=== PATIENT | female | born 1970 | race Caucasian/White ===

== ENCOUNTER 2016-09-14 11:46 | Inpatient (IN) | payer OTHER ==
[2016-09-14] VITALS (20 sets, daily range): BP systolic 110–162; BP diastolic 60–93; PULSE 71–107; RESP 8–20; O2SAT 93–100
[~2016-09-14] VITALS: Ht 165.1 cm; Wt 57.3 kg
[~2016-09-14 11:46] MED LIST: BACL20TA PO; Bacitracin 50,000 unit Inj IRRIGATION ONE; CeFAZolin Inj 1 GM in IV Premix 1 EACH IV ONE; DIAZ5TAB PO; DICL50TA7 PO; GABA600T2 PO; KEN25CR TP; LEVO75TA4 PO; Lactated Ringer's 1,000 ML IV ONE; NORE1TAB89 PO; OXYC1TAB24 PO; Thrombin Powder 5,000 Unit TOPICAL ONE
[2016-09-14] MEDS ORDERED: oxyCODONE-Acetamin 5-325 mg Tablet PO ONE (12:45)
[2016-09-14] MEDS ORDERED: Bacitracin 50,000 unit Inj ONE (14:20)
[2016-09-14] MEDS ORDERED: Thrombin Powder 5,000 Unit TOPICAL ONE ×3 (14:20→16:04)
[2016-09-14] MEDS ORDERED: Phenylephrine 10,000 mCg/mL Inj IVPUSH PRN (14:30)
[2016-09-14] MEDS ORDERED: MetoCLOpramide 5 mg/mL 2 mL Inj IVPUSH PRN (14:30)
[2016-09-14] MEDS ORDERED: Lactated Ringer's 1,000 ML IV SCH (14:30)
[2016-09-14] MEDS ORDERED: EPHEDrine Sulfate 50 mg/mL Inj IVPUSH PRN (14:30)
[2016-09-14] MEDS ORDERED: Lactated Ringer's 500 ML IV PRN (14:30)
[2016-09-14] MEDS ORDERED: Atropine 0.4 mg/mL Inj IVPUSH PRN (14:30)
[2016-09-14] MEDS ORDERED: Ondansetron 2 mg/mL 2 mL Inj IVPUSH PRN ×3 (14:30→18:05)
[2016-09-14] MEDS ORDERED: Labetalol 5 mg/mL 4 mL Inj IV PRN (14:30)
--- NOTE | 2016-09-14 14:30 | PCM.HPANE ---
Patient Data Surgeon Admitting Provider: Attending Provider:Kiran Medina MD Primary Care Physician:Emily Serrato PA-C Other Provider:Padmini Espinosa Anesthesia Reason for Visit Cervical Myelopathy CERVICAL MYELOPATHY Ht/WT & BMI Height (Feet): 5 Height (Inches): 5 Weight (Kilograms): 54.431 Body Mass Index 19.00 Allergies Coded Allergies: latex (Verified Allergy, Severe, Rash, 09/09/16) pregabalin (Verified Allergy, Severe, respiratory difficulty,"feels crazy ", 09/09/16) Past Anesthesia History Anesthesia History: Denies:: Abnormal Airway, Anesthesia Reactions, Difficult Intubation, Fam Anesthesia Reaction, Fam Malignant Hypertherm, Malignant Hyperthermia Diabetes History Hx Diabetes?: No MRSA MRSA: No Medications Hypertension Medication: No Home Meds Incl Beta Alondra: No Reported Medications Diazepam (Valium)5 Mg Tablet5-10 Mg PO TID PRN prn 30 Days Ref 0 09/09/16 Triamcinolone Acet (Triamcinolone Acetonide Cream)1 Applic/0.25 Gm Cr1 Applic TP DAILY #60 GM Ref 0 0.1% 09/09/16 oxyCODONE-Acetaminophen 5-325 mg 1 Each Tablet1-2 Tab PO Q4H PRN For Pain Ref 0 09/09/16 Norethindrone-Ethinyl Estrad (Ortho-Novum)1 Each Tablet1 Each PO DAILY 09/09/16 Diclofenac ER 50 Mg [id number] Mg PO DAILY 09/09/16 Gabapentin 600 Mg [id number] Mg PO Q4 HRS Ref 0 09/09/16 Levothyroxine 75 Mcg [id number] Mcg PO DAILY Ref 0 09/09/16 Baclofen 20 Mg Pidqer35 Mg PO TID Ref 0 09/09/16 Discontinued Reported Medications oxyCODONE-Acetaminophen 5-325 mg 1 Each Tablet1 Tab PO BID PRN For Pain Ref 0 09/09/16 [clonidine] No Conflict Check Tid 10/10/13 Hydrocodone-Acetaminophen 5-325 mg 1 Each Tablet1 Each PO Q 6HRS PRN For Pain Ref 0 10/09/13 Levothyroxine 50 Mcg [id number] Mcg PO DAILY 30 Days Ref 0 10/04/13 Gabapentin 800 Mg Mypgic488 Mg PO QID 30 Days Ref 0 07/25/13 Discontinued Scripts Nitrofurantoin Macrocrystal 100 Mg [id number] Mg PO QID 7 Days Ref 0 Prov:Clint Mandujano DO 02/14/14 History History of ENT Problems?: Yes HEENT History: Positive for:: Sinus Problem (S/P SEPTOPLASTY,TURBINATE RESECTION 07/2013) TMJ Denies:: Abnormal Airway Difficult Intubation Hearing Problem Denture Type: None Teeth Condition: Within Normal Limits Hx of Heart Problems?: No Cardiovascular History: Denies:: AICD Abdominal Aortic Aneurism Atrial Fibrillation Cardiac Surgery Chest Pain Congestive Heart Failure Coronary Artery Disease Edema Heart Murmur Hypertension Irregular Heartbeat Pacemaker Peripheral Vascular Rheumatic Fever Thrombophlebitis Valvular Heart Disease Hx of Respiratory Problem?: Yes Respiratory History: Positive for:: Pneumonia (HX OF) Use of C-PAP Machine (YASEMIN+ W/ cpap) Denies:: Asthma COPD Chest Surgery Cough Dyspnea Emphysema Hemoptysis Oxygen Administration Pulmonary Embolism Tuberculosis Hx Neurologic Problems?: Yes Neurological History: Positive for:: Dizziness Headaches Seizures (REMOTE HX-ON NO MEDS) Hx of GI Problems?: Yes Other GI Pertinent History: HX IBS Hx of Problems?: No Genitourinary History: Denies:: Kidney Stones Female Hx: Positive for:: Problems with Breasts? (S/P BREAST AUGMENTATION) Denies:: Currently (S/P C/S,IUD REMOVAL) Endometriosis Pelvic Inflammatory Skin History: Positive for:: History Skin Disorders? (HX RASH-RT ARM) Denies:: Pressure Ulcers Hx Musculoskeletal Problems?: Yes Musculoskeletal History: Positive for:: Musculoskeletal Trauma Denies:: Back Injury (S/P L3-4 FUSION C/OF LOWER BACK & NECK PAIN) Degenerative Joint Joint Replacement Systemic Lupus Hx of Psycho/Social Problems?: Yes Psycho Social History: Positive for:: Hx Depression Denies:: Suicide Attempt Hx Surgeries?: Yes (BACK, BREAST AUGMENTATION, .,SINUS SURG,IUD REMOVAL ) Hx Any Other Health Problems?: Yes Other History: Positive for:: Thyroid Disease (hypothyroidism) Denies:: Cancer Endocrine Disease Hospitalization History Blood Transfusions: Denies:: Blood Transfuse Reaction Blood Transfusions Hx Diabetes: No Hx Alcohol Use: NoHx Substance Use: Yes (IN RECOVERY) Smoking Status: Current Every Day Smoker Have You Smoked inLast 12 mo: YesApprox How Many Cigarettes/day: 1/2 PPD X 8YRS Stop/Bang S-Snoring: Do You Snore Loudly: Yes T-Tired: feel tired, fatigued: Yes O-Obsered: Observed not breath: Yes P-Blood Pressure: treated: No B- Body Mass Index > 35 kg/m2: No A- Age over 50: No N- Neck Large Circumference: No G- Gender Male: No YASEMIN Total Score: 3 YASEMIN Risk Assessment: High Risk, =/>3 Yes Risk Assessment Category Category 1A: Patient has history of documented sleep apnea, and HAS NOT received any narcotic, sedative or anesthesia administration during this stay. Category 1B: Patient has history of documented sleep apnea, and HAS received any narcotic , sedative or anesthesia administration during this stay Category 2: Patient has SUSPECTED Obstructive Sleep Apnea, and HAS received any narcotic , sedative or anesthesia administration during this stay. Category 3: Patient has SUSPECTED Obstructive Sleep Apnea and HAS NOT received narcotic, sedative or anesthesia administration during this stay. Category 4: Outpatient in Procedural Areas with known sleep apnea or who screen positive for High Risk via the STOP/BANG questionnaire. Exam Exam Vital Signs Vital Signs Date Time Temp Pulse Resp B/P Pulse Ox O2 Delivery O2 Flow Rate FiO2 09/14/16 12:15 36.9 71 16 110/73 96 Room Air General Appearance: Alert, Oriented X3, Cooperative, No Acute Distress HEENT/AIRWAY: MP 2, Neck Movement (limited extension secondary to pain) Lungs: Clear to Auscultation, Normal Air Movement Heart: Exam Unremarkable, Regular Rate/Rhythm, No Murmurs/Rubs/Gallops Meds/Labs/Diagnostics Admission Meds Current Medications Lactated Ringer's (Lr) 1,000 ml @ 120 mls/hr Q8H20M ONCE IV Last administered on 09/14/16t 11:57; Start 09/14/16 at 05:00; Stop 09/14/16 at 13:19 Plan Impression Patient chart reviewed, patient interviewed and anesthestic plan with risks, benefits, and alternatives discussed, and informed consent obtained. NPO per Anesth. Guidelines: Yes ASA Physical Status: ASA3 Severe Disease Anesthetic Plan: GA Bene/Risks/Altern/Consents: Yes HP Complete Prior to Induction: Yes Abdiel Enriquez MD September 14, 2016 12:17
[2016-09-14] MEDS ORDERED: Bacitracin 50,000 unit Inj IRRIGATION ONE (15:17)
[2016-09-14] MEDS ORDERED: Bupivacaine-MPF 0.5% 30 mL Inj INJ ONE (15:18)
[2016-09-14] MEDS ORDERED: Gelatin Sponge 12-7 MM TOPICAL ONE (15:18)
--- NOTE | 2016-09-14 15:42 | DRSVH ---
PROCEDURE: X-RAY CERVICAL SPINE, 1 VIEW INDICATIONS: MYELOPATHY TECHNIQUE: Single lateral view of the cervical spine acquired. COMPARISON: None. FINDINGS: Bones: Radiopaque surgical probes are present projected over the anterior disc interspaces localizing C4-C5 and C5-C6. Soft tissues: No prevertebral soft tissue swelling. IMPRESSION: Localization of the anterior disc interspaces C4-C5 and C5-C6. Dr. eMdina given results at 1539 hrs. 09/14/2016. Dictated by: Andrea MONTES Interpreted: Anthony Lo MD on 09/14/2016 at 15:38 Transcribed by: LUISITO on 09/14/2016 at 15:41 Approved by: Anthony Lo M.D. on 09/15/2016 at 10:21
[2016-09-14] MEDS ORDERED: Promethazine Inj 50 MG in 0.9% Sodium Chloride-Pha MIX 100 ML IV PRN (17:55)
--- NOTE | 2016-09-14 17:59 | PCM.ANEP1 ---
Post Anesthesia PACU Phase 1 Assessment Vital Signs VSS. see CLIENT SUPPORT ANALYST notes Vital Signs Date Time Temp Pulse Resp B/P Pulse Ox O2 Delivery O2 Flow Rate FiO2 09/14/16 12:19 CPAP/BIPAP 09/14/16 12:15 36.9 71 16 110/73 96 Room Air Anesthetic Administered: GA Level of Alertness: Sleepy, easy to arouse VU's with Equal Strength: Yes Pain: No Nausea or Vomiting: No CV Function & Hydration Stable: Yes Airway Device: Endotrachial Tube Oxygen Delivery: Simple Mask Lungs: Clear to Auscultation, Normal Air Movement PACU Phase 2 Assessment Complications: No Follow up Care: N/A Patient Instructions Provided: N/A Abdiel Enriquez MD September 14, 2016 17:59
[2016-09-14] MEDS ORDERED: Benzocaine (Hurricaine) 20% Unit-Dose Spray MUC_MEMBRM PRN (18:00)
[2016-09-14] MEDS: Lactated Ringer's 1,000 ML IV SCH (18:03)
[2016-09-14] MEDS ORDERED: Sodium Biphos-Phos 133 mL Enema RECTAL PRN (18:05)
[2016-09-14] MEDS ORDERED: Magnesium Hydroxide 10 mL Oral Concentration PO PRN (18:05)
[2016-09-14] MEDS ORDERED: Polyethylene Glycol (PEG) 17 Gm Powder PO PRN (18:05)
[2016-09-14] MEDS ORDERED: Acetaminophen IV 1,000 MG in IV Premix 1 EACH IV SCH (18:05)
[2016-09-14] MEDS ORDERED: Benzocaine-Menthol Lozenge 2/Pkg PO PRN (18:05)
[2016-09-14] MEDS ORDERED: Senna-Docusate 8.6-50 mg Tablet PO PRN (18:05)
[2016-09-14] MEDS: fentaNYL-PF 50 mCg/mL 2 mL Inj IVPUSH PRN ×2 (18:07→18:20)
[2016-09-14] MEDS ORDERED: Succinylcholine Chloride 20 mg/mL 5 mL Inj ONE (18:26)
[2016-09-14] MEDS ORDERED: Dexamethasone 4 mg/mL Inj ONE (18:26)
[2016-09-14] MEDS ORDERED: Glycopyrrolate 0.2 MG/ML 1mL Inj ONE (18:26)
[2016-09-14] MEDS ORDERED: Remifentanil 1 mg/3 mL Inj ONE (18:26)
[2016-09-14] MEDS ORDERED: HYDROmorphone 2 mg/mL Inj ONE (18:26)
[2016-09-14] MEDS ORDERED: fentaNYL-PF 50 mCg/mL 2 mL Inj ONE (18:26)
[2016-09-14] MEDS ORDERED: Propofol 10,000 mCg/mL 20 mL Inj ONE (18:26)
[2016-09-14] MEDS ORDERED: Rocuronium 10 mg/mL 5 mL Inj ONE (18:26)
[2016-09-14] MEDS ORDERED: EPHEDrine/NS 5 mg/mL 5 mL Syringe ONE (18:26)
[2016-09-14] MEDS: HYDROmorphone 1 mg/mL Inj IVPUSH PRN ×3 (18:39→19:35)
--- NOTE | 2016-09-14 19:11 | OP ---
[address] [address] OPERATIVE REPORT PATIENT: NORY CARRANZA : 1970 MR#: [id number] ADMIT: 09/14/2016 JOB ID: [id number] DATE OF SURGERY: 09/14/2016 PREOPERATIVE DIAGNOSIS(ES): Cervical spondylosis and myelopathy. POSTOPERATIVE DIAGNOSIS(ES): PROCEDURES: C4 through 6 anterior cervical diskectomy and fusion with allograft bone and C4 through 6 anterior plating. SURGEON: Kiran Medina MD APPLICATION TRAINER: Anthony Werner PA-C. ANESTHESIA: General with Dr. Abdiel Enriquez. ESTIMATED BLOOD LOSS: 50 cc. DRAINS: One JOYCE. COMPLICATIONS: None. INDICATIONS: This patient presented with symptoms and findings of cervical myelopathy. She was found to have spondylosis with cord compression at C4-5 and C5-6 and neural foraminal narrowing of a moderate degree at C5-6 bilaterally. She was primarily symptomatic from the cord compression at both levels. INDICATIONS FOR CONCESSIONS MANAGER: This procedure requires the surgeon to use two hands on instrumentation to prevent spinal cord injury. For safety reasons, an broker assistant is needed for traction and running the suction. PROCEDURE: This patient was taken to the operating room on September 14, 2016, placed supine on the operating room table with her head supported on a doughnut. She was placed under general anesthesia, prepped and draped sterile. The right side of the neck was infiltrated with 0.5% plain Marcaine. An incision was made transversely from the midline to the sternocleidomastoid at the level of C5. The incision was carried down sharply through the skin and subcutaneous tissues and hemostasis was achieved with the monopolar. The platysma was incised and blunt dissection was used to create a plane just medial to the sternocleidomastoid. The carotid was palpated, mobilized laterally. The esophagus and trachea were mobilized medially with an appendectomy retractor. The blunt dissection was carried into the prevertebral space. Then, spinal needles were placed at C4-5 and C5-6, and the location of these markers was confirmed with an intraoperative lateral C-spine x-ray, confirmed by Radiology. The markers were removed and the monopolar was used to july the C4-5 and C5-6 disk space. Deep retractors were then placed with the blades beneath the longus colli musculature and distracted open. [place] pins, the 12 mm pins, were placed into the vertebral bodies of C4 and C5 and distracted open. The microscope was brought into position. The patient had a diskectomy and fusion first performed at C4-5, then at C5-6. When the procedure was moved to the next level, then it was necessary to adjust the retractors and replace the [place] pins, and adjust the microscope. The diskectomy was performed in the same manner at both levels. First the annulus was incised with the monopolar. Then, the disc material was removed completely with curette and pituitary rongeur. The high-speed bur was used to remove the anterior and posterior osteophytes and widen the disc space. The posterior longitudinal ligament was resected with the Kerrison punch. The Kerrison punch was also used to detach the ligament, undermine the posterior osteophytes and widen the central canal. Following this decompression, foraminotomies were performed at the C5-6 level to decompress the C6 roots bilaterally. The patient did not have root compression at the C4-5 level. Then, the rasp set was used to prepare the disc space at both levels for the fusion. The C4-5 level required rasping to 9 mm, tapering to 7 mm. At the C5-6 level, an 8 mm rasp tapering to 6 was adequate to prepare the disc space. Following the use of the rasp, both the C4-5 and C5-6 spaces were irrigated with antibiotic solution. Gelfoam was used for hemostasis. Then, the Gelfoam was removed. Allograft was obtained, Vertigraft, measuring 9 mm and tapering to 7 mm at the C4-5 level, and 8 mm tapering to 6 mm at the C5-6 level. The allograft was placed at both levels. Distraction was released and the bone grafts were held firmly in position. At this point, a plate was selected to span C4 through C6. A dynamic titanium plate manufactured by [employer] (Joyce plate) was secured to the vertebral bodies of C4, C5, and C6 with the 12 mm fixed-angle self-drilling titanium screws. The screws were all locked into position. Then, the spacers were removed from the dynamic plate. The wound was then inspected. It was irrigated with antibiotic solution. Hemostasis was achieved with the bipolar electrocautery. A JOYCE drain was placed at the base of the wound, brought out through a separate stab wound, and hooked up to bulb suction. The platysma was then approximated with interrupted sutures of 0 Vicryl. The subcutaneous tissues were closed with 2-0 Vicryl. The skin was closed with 4-0 Vicryl using a subcuticular stitch. Steri-Strips were applied to the skin, which was dressed with Telfa, gauze, and tape. The patient was placed in a soft cervical collar.
[2016-09-14] MEDS: Senna-Docusate 8.6-50 mg Tablet PO SCH (20:52)
[2016-09-14] MEDS: Acetaminophen IV 1,000 MG in IV Premix 1 EACH IV SCH (20:52)
[2016-09-14] MEDS: Dexamethasone 4 mg/mL Inj IVPUSH SCH (20:53)
[2016-09-14] MEDS: CeFAZolin Inj 1 GM in IV Premix 1 EACH IV SCH (23:31)
--- NOTE | 2016-09-15 00:38 | NUR ---
Admit Pt arrived from OR at 1915. Post C4-6 discectomy. Pt transferred from [facility] with 2EA. IV patent with fluids infusing. Pt oriented to call light, bed controls. Pt shaking/trembling, provided warm blankets. Pt crying, reporting pain 10/10. Pain meds administered as well as valium. + effects rec'd. Family at bedside. Pt is FULL CODE. A/O x3, making needs known. C/o sore throat, sipping on cold water and ice chips. Cervical collar in place, dressing CDI with JOYCE drain at right anterior neck, draining serous fluid. SCD's on. Care continues
[2016-09-15] MEDS: Acetaminophen IV 1,000 MG in IV Premix 1 EACH IV SCH ×3 (01:02→13:12)
[2016-09-15 01:25] VITALS: BP 108/66; PULSE 58; RESP 18; O2SAT 97
[2016-09-15] MEDS: Dexamethasone 4 mg/mL Inj IVPUSH SCH ×3 (02:39→14:30)
[2016-09-15] MEDS: Lactated Ringer's 1,000 ML IV SCH ×2 (04:03→14:03)
[2016-09-15] MEDS: hydrOXYzine Pamoate 25 mg Capsule PO PRN ×2 (04:30→11:59)
[2016-09-15 05:01] VITALS: BP 108/51; PULSE 69; RESP 16; O2SAT 98
[2016-09-15] MEDS: CeFAZolin Inj 1 GM in IV Premix 1 EACH IV SCH (06:13)
[2016-09-15] MEDS: Senna-Docusate 8.6-50 mg Tablet PO SCH (08:09)
[2016-09-15] MEDS ORDERED: NORETHINDRONE ETHINYL ESTRAD PO SCH (08:30)
[2016-09-15 08:37] VITALS: BP 108/66; PULSE 74; RESP 18; O2SAT 97
--- NOTE | 2016-09-15 09:38 | PCM.DISURG ---
Surgical Discharge Instruction Date of Service September 15, 2016 Dates of Hospitalization Date of Hospital Admission September 14, 2016 at 18:25 Providers Admitting Physician: Kiran Medina MD Primary Care Physician: Emily Serrato PA-C Attending Physician: Kiran Medina MD Discharge Diagnosis Discharge Diagnosis Status post C4-5 and percent C5-6 anterior cervical discectomy and fusion, with allograft bone 2, & anterior cervical plating from C4-6 Post Operative diagnosis Status post C4-5 and percent C5-6 anterior cervical discectomy and fusion, with allograft bone 2, & anterior cervical plating from C4-6 Additional Instructions Discharge Instructions Anterior Cervical Discectomy and Fusion What is my recovery like? The hospital stay is usually overnight. After the surgery, you might have a sore throat. This is very common due to the retraction (moving) of the esophagus and trachea. The sore throat usually resolves in 1-2 weeks. Drinking lots of fluids will help improve the symptoms. The cervical collar should be worn at night and for comfort only during the day. On your postoperative follow- up appointments, your Doctor will perform X-rays to see how well everything is healing. What are my restrictions? You should not lift anything heavier than five pounds. Avoid excessive movements of your neck until instructed specifically by your Doctor. Can I Shower? You may shower when you go home. You must remove the outside dressing on the 7th day after surgery, or change dressing as needed if soiled or saturated ( replacing new sterile gauze & water proof dressing) otherwise leave alone. The small pieces of tape (steri-strips) directly on top of the incision may get wet. The steri-strips will fall off on their own. Can I drive? No, you should not drive until specifically given permission from your Doctor in a follow up appointment. Most Patient's can drive in 2-3 weeks if they are not taking narcotic pain medications or muscle relaxers. You may ride in a car, but should avoid trips longer than two hours in duration. When can I return work / sports? Your Doctor will discuss your return to work with you on your first postoperative follow-up appointment. Most patients may return to work within 2 weeks for sedentary jobs. More physically demanding jobs may require 3-6 months of healing before such work can be considered. When should I call the doctor? You should call your Doctor or go to the Emergency Department if you develop chest pain, oversedation, shortness of breath, a temperature greater than 101.5 F, severe uncontrolled pain or weakness, loss of bowel or bladder function, choking, swelling, lots or drainage, pus discharge or constipation. Instructions Regarding Comfort & Pain Medication Use: During the recovery period , even with the use of pain medication, you may experience pain at the site of surgery. You may also have the same type of pain you had before surgery. Please use your pain scale as a guide for taking your pain medication. When your pain is greater than 4 out of 10, or when your pain reaches your personal tolerable level of pain, take your pain medication as prescribed. Use your pain medication on an 'as needed' basis. This means if your pain level is within your tolerable level of pain you DO NOT need to take the medication. As you get better, you will notice you can increase the time interval between doses and decrease the number of tablets you are taking, gradually taking less and less pain medication. Taking pain medication when it is not necessary (for example when your pain is tolerable or acceptable) can result in dangerous side effects and over- sedation. Signs and symptoms of over-sedation include: drowsiness, excessive sleeping, slow or difficult breathing, slurred speech, impaired thinking, confusion, impaired motor coordination. If you have any of these symptoms stop taking the medication and immediately contact your doctor. IF SYMPTOMS ARE LIFE THREATENING CALL 911. To decrease pain and swelling, frequently apply an ice pack for 20 min intervals with at least one hour off. When to take Acetaminophen for pain? If you don't have liver problems, allergies and/or Tylenol is not in your current pain medication. Take Extra Strength Tylenol 500mg 2 tabs by mouth every 6 hours as needed for pain. DO NOT EXCEED 8 TABS PER DAY. Use CPAP as instructed & all times indicated. Follow Up Plan Follow Up Plan 1. Follow-up with physician banking assistant in outpatient neurosurgery clinic in 1 week for wound check. 2. Establish postoperative pain management in 2 weeks. Follow-up Provider (F9): Anthony Werner PA-C Additional Information Attending Statement All documentation reviewed & orders authorized by Dr. Kiran Medina M.D. Anthony Werner PA-C September 15, 2016 09:38
--- NOTE | 2016-09-15 09:45 | PCM.DC.SUR ---
Discharge Summary Date of Service: September 15, 2016 Date of Hospital Admission: September 14, 2016 at 18:25 Date of Operation(s): 09/14/2016 Date of Discharge: 09/15/2016 Diagnosis at Time of Discharge Status post C4-5 & C5-6 anterior cervical discectomy and fusion, with allograft bone 2, & anterior cervical plating from C4-6 Problems: Operation C4-5 & C5-6 anterior cervical discectomy and fusion, with allograft bone 2, & anterior cervical plating from C4-6 Brief History and Physical: Patient: Lisseth Louie Date of : 1970 Visit Type: Pre Op Visit Date: 09/09/2016 09:00 AM This 46 year old female presents for Preop C4-6 ACDF, Allograft x 2 and & Plating. History of Present Illness: 1. Preop C4-6 ACDF, Allograft x 2, & Plating Lisseth Louie is a 46 year old female referred by Primary Care provider ( PCP) Emily Serrato PA-C who presents today's date 09/09/2016 for a preoperative type of appointment concerning the decision for surgery involving C4-5 & C5-6 anterior cervical discectomy and fusion, with allograft bone 2, & anterior cervical plating from C4-6 secondary to a diagnosis of cervical spondylosis with myelopathy with related complaints of severe, intractable, and debilitating headache & neck spasm to the shoulders & back with radiating pain, numbness, paresthesias, dysesthesias, & weakness in the bilateral upper extremities including difficulty with coordination. The patient was last evaluated by Dr. Kiran Medina M.D. on 07/15/2016 documenting that she had low back surgery, a fusion for treatment of severe low back pain and lumbar radicular pain, approximately 3 years ago surgery was successful at relieving the lumbar radicular pain and most of the local low back pain. She still has some residual low back pain. Over the past 3 years since the back surgery she's had a progression of neck pain and symptoms of cervical myelopathy. She was seen in consultation 1 year ago and has had progression of her symptoms of myelopathy. She was offered surgery last year, but was unable to obtain insurance coverage, and lived with her symptoms. She reports that she's had constant posterior neck pain over the past 6-7years it has become much more severe over the past 3 years. The neck pain radiates into the shoulders and arms. She reports a constant diffuse ache in the shoulders arms and hands over the past 3 years. She also has constant numbness and paresthesias diffusely in the arms and hands more severe in the left arm. The symptoms in the right arm started approximately 1 1/2 years ago. Over the past 3 years she has noted a jitteriness in her hands and has been dropping things from both hands. She also reports impairment of balance over the past 3 years. She denied lumbar spasm and denied bladder spasticity. Cervical extension causes increased neck pain and increased pain radiating into the shoulders. The cervical extension also causes diffuse paresthesias and burning pains in the arms and can cause shooting pain into the arms. Cervical extension can also cause a pain down the back of the spine to the low back. The patient reports that she wakes up from sleep with diffuse pain involving the shoulders and arms described as a burning aching sensation in cramping sensation. She also has episodes of left anterior chest wall pain. An MRI scan of the cervical spine obtained last year, 05-13-15, was obtained showing spondylosis at multiple levels with cord compression most pronounced at C4-5 and C5-6. She reports a progression of symptoms, with more intense anterior chest wall pain, and would like to proceed with surgery. The patient has repeated her MRI in preparation for her indicated surgery. According to Dr. Kiran Medina M.D. the patient has cervical spondylosis with myelopathy. She is failed conservative treatment & her symptoms are intractable. He recommends cervical spinal decompression and fusion with instrumented stabilization. Dr. Medina & the patient discussed all the risks and benefits associated with procedure as well as reasonable expectations with her scar to surgical outcomes & the patient elected proceed with surgery as planned. The patient denies any complete or acute loss of control of bowel or bladder function, saddle paresthesia or anesthesia. The patient has a reported pertinent past medical, surgical, family, & social history for previous multilevel lumbar fusion, section, breast augmentation, obstructive sleep apnea (has CPAP), chronic joint pain, thyroid disorder, a distant history of seizures, history of dizziness, frequent headaches, but denies history of illegal drug use, severe depression or suicidal ideation. She is however a chronic smoker with possible chronic pain syndrome & chronic pain management (history of detox & Suboxone use); with no other then the above known positive history &/or review of all other organ systems. The patient's related complaints have been a serious detriment to their happiness and activities of daily living. Having failed conservative treatment the patient presents today for their decision for surgery appointment involving C4-5 & C5-6 anterior cervical discectomy and fusion, with allograft bone 2, & anterior cervical plating from C4-6 for treatment of cervical spondylosis with myelopathy; related to severe, intractable, and debilitating headache & neck spasm to the shoulders & back with radiating pain, numbness, paresthesias, dysesthesias, & weakness in the bilateral upper extremities including difficulty with coordination. The procedure is scheduled to be performed by Dr. Kiran Medina M.D. on 07/15/2016. Problem List: Problem Description Multiple-level cervical spondylosis with myelopathy Sleep apnea Pain radiating to left shoulder Back pain Opioid type dependence, unspecified use Anxiety State, NOS Acquired hypothyroidism Medical/Surgical/Interim History Reviewed, no change. Last detailed document date:09/09/2016. Family History: Reviewed, no changes. Last detailed document date:09/09/2016. Social History (Reviewed, updated) 09/09/2016 Tobacco use reviewed. Preferred language is Romansh. The patient does not need an educational interpreter. Marital Status/Family/Social Support Currently legally . Smoking status: Current every day smoker. Smoking Status Use Status Type Smoking Status Years Used Total Pack Years yes Cigarette Current every day smoker 5.00 3.75 Tobacco Cessation Information Date Counseled By Order Status Description Code Tobacco Cessation Information 04/05/2012 Celia Nelson Tobacco cessation counseling completed Smoking cessation education 05/17/2012 Celia Nelson Tobacco cessation counseling completed Smoking cessation education 02/20/2015 Smoking cessation education 02/20/2015 Santino Sosa MA Tobacco cessation counseling completed Tobacco cessation counseling There is passive smoke exposure. Tobacco type: Cigarette CAFFEINE The patient uses caffeine: coffee - 2 cups a day. Allergies: Ingredient Reaction Medication Name Comment PREGABALIN Trouble Breathing, "feels crazy" Lyrica LATEX rash Reviewed, no changes. Review of Systems System Neg/Pos Details Endocrine Positive Weight gain, Weight loss. Psych Positive Anxiety. MS Positive Back pain, Bone/joint symptoms, Muscle weakness, Myalgia, Neck stiffness. Respiratory Positive Apnea. Respiratory Negative Dyspnea and wheezing. Cardio Negative Chest pain, irregular heartbeat/palpitations, leg swelling and pacemaker. Constitutional Negative Chills and fever. ENMT Negative Hearing loss. Neuro Negative Dizziness, headache and seizures. Negative Dysuria, urge incontinence and urinary incontinence. Eyes Negative Double vision and vision loss. Integumentary Negative Mrsa and rash. GI Negative Abdominal pain, constipation, diarrhea, nausea and vomiting. Mandeep/Lymph Negative Blood clots. Psych Negative Depression. Vital Signs Height Time ft in cm Last Measured Height Position % 8:50 AM 5.0 5.00 165.10 03/01/2016 Weight/BSA/BMI Time lb oz kg Context % BMI kg/m2 BSA m2 8:50 AM 120.00 54.431 dressed with shoes 19.97 1.58 Blood Pressure Time BP mm/Hg Position Side Site Method Cuff Size 8:50 AM 138/68 sitting left wrist automatic adult Temperature/Pulse/Respiration Time Temp F Temp C Temp Site Pulse/min Pattern Resp/ min 8:50 AM 98.6 37.0 68 regular Pain Scale Time Pain Score Method 8:50 AM 5/10 Numeric Pain Intensity Scale Measured By Time Measured by 8:50 AM Pretty Starks MA Screening Summary:o The following were reviewed: tobacco use, alcohol use, caffeine use and date of last mammogram Physical Exam Exam Findings Details Comments WD/WN, female who is AO x 3, cooperative & appears to be in NAD w/ language & speech that is intact & fluent. There is no evidence of recent or remote memory impairment. The patient's knowledge is appropriate for age & level of education w/ a pleasant affect & euthymic mood. Ambulates w/ no difficulty. NC/AT, PERRL, EOMI, w/o facial droop, hearing grossly intact, nostrils patent, oral cavity and pharynx normal. Neck supple, w/o LAD or thyromegaly. 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 Assessment Cervical spondylosis with myelopathy (M47.12). 2. Assessment Pre-op evaluation (Z01.818). Patient Plan We including your Attending Surgeon have discussed the risks and benefits associated your scheduled procedure which you have verbally acknowledged understanding including but not limited to the possibility of an outcome that we are unable to predict or was not mentioned. 1. You are scheduled for a C4-5 & C5-6 anterior cervical discectomy and fusion , with allograft bone 2, & anterior cervical plating from C4-[address] Kiran Medina M.D. at [facility] on 09/14/2016. 2. Check in time is 12 PM. Also please ignore instructions below if told otherwise by your preadmission nurse or if you do not take the medications listed below. 3. Nothing to eat after midnight the night before surgery. You may take all of your "approved" medications with small sips of water. Remember to take your a.m. hypertension medication if it is a beta sameer and ends in "olol. Otherwise ask your doctor if you need to hold your a.m. hypertension medication. 4. No aspirin, ibuprofen, Naprosyn, or other NSAIDs starting 7 days prior to surgery. 5. Please stop Warfarin/Coumadin or other blood thinners such as Plavix, Aggrenox, or Xarelto 7 days prior to your surgical procedure and follow specific instructions from your prescribing provider. 6. Please stop Lovenox bridging in the morning one day prior to procedure. 7. Please stop Suboxone/Buprenorphine at least 4 days prior to procedure. 8. Go to the hospital today to get her preoperative testing done. Take the order form to the surgery desk on the second floor of the hospital, [facility] (main entrance next to the emergency entrance). I will notify you if there is any test results that require further workup prior to surgery. 9. Follow the instructions you were given today, use the cleansing cloths the night before as well as the morning of her surgery. 10. If you are prescribed inhalers, CPAP or BiPAP machines you use at home bring along with you to the hospital. 11. ONLY If you take medications for Diabetes: If you have an insulin pump continue lowest (typically night-time) basal rate into the a.m. If you do not have a pump check h your a.m. blood sugar and hold insulin if BS less than 100. If you are taking long-acting, intermediate acting (NPH) or 70/30 preparation : Take half on day of procedure. If you are taking ultra long-acting insulin such as glargine, Lantus either at night or in the a.m. continue as scheduled ( including day of surgery). If you take short acting regular insulin (insulin not delivered via pump) discontinue on day of procedure. 12. Please call if you have any questions before your surgery: [phone]. Today's instructions/counseling include(s) Pre-operative instructions given to the patient and or legal inbound customer service representative(s) orally and in writing. 13. Our office will contact you if there are any test results that require further workup prior to surgery. Provider Plan The patient's history and examination as well as radiological findings were reviewed with Dr. Kiran Medina M.D. and conveyed the patient in detail. The findings are consistent with cervical spondylosis with myelopathy and are most likely the cause of the patient's severe, intractable, and debilitating headache & neck spasm to the shoulders & back with radiating pain, numbness, paresthesias, dysesthesias, & weakness in the bilateral upper extremities including difficulty with coordination. The patient has failed extensive conservative treatment for this condition. The treatment options were discussed with the patient. The options include attempt to live with the condition, reattempt conservative treatment, try a pain management intervention / injection or consider a surgical intervention. We are not extremely optimistic that further conservative treatment, pain management intervention and/or injection will adequately resolve the patient's symptoms of severe, intractable, and debilitating headache & neck spasm to the shoulders & back with radiating pain, numbness, paresthesias, dysesthesias, & weakness in the bilateral upper extremities including difficulty with coordination. Therefore we recommend C4-5 & C5-6 anterior cervical discectomy and fusion, with allograft bone 2, & anterior cervical plating from C4-6. The patient was provided/offered educational materials pertaining to their diagnosis and the above discussed procedure. We discussed the risks and benefits associated with this surgery. A spine model was used to explain the nature of this type of surgery. The risk of the required anesthesia was also mentioned including but not limited to organ failure such as heart attack, pneumonia and stroke even . The risk of this type of surgery was also mentioned. Including but not limited to an unsuccessful outcome, residual symptoms, odynophagia, dysphasia or sore throat, referred or radiating posterior spinal myofascial inflammatory pain or spasm, post operative instability, instrumentation failure, sensory changes, blood loss, blood clots, wound infection, spinal cord or nerve damage, CSF or lymph leak, damage to neighboring structures such as the recurrent laryngeal nerve, perforation of the esophagus or trachea, pseudoarthrosis, adjacent level disease, Jimbo's Syndrome, vision loss, voice change, resulting in temporary or permanent dysfunction, even disability, paralysis, and . The recovery of this type of surgery was also mentioned. This includes but is not limited to reasonable expectations for the treatment of myelopathy involving the surgical decompression of the cervical spinal cord; which will stop the progression of the patient's condition but cannot guarantee improvements in any associated physical complaints. The patient verbalized understanding all the risks and benefits, knowing that it is impossible to predict or guarantee every surgical outcome; and would like to proceed with the above discussed procedure anyways. Surgery is scheduled for 09/14/2016. The standard [facility] preoperative screening tests, medicine restrictions, and logistical protocols apply. Any preoperative testing is within normal limits to undergo the above discussed procedure unless otherwise noted in the medical record. POSTOPERATIVE NOTE: The patient was given a prescription for postoperative analgesics & muscle relaxants after she verbalized understanding with regards to his discussion involving the risks, benefits, & care associated with these medications including but not limited to really seek immediate medical attention for shortness of breath or oversedation. Medications (added, continued or stopped this visit): Start Date Medication Directions Stop Date 07/27/2016 baclofen 20 mg tablet take 1 tablet by oral route 3 times every day 04/15/2016 diclofenac potassium 50 mg tablet take 1 tablet by oral route daily 08/27/2016 gabapentin 300 mg capsule take 2 capsule by oral route 3 times every day 05/26/2016 levothyroxine 75 mcg tablet take 1 tablet by oral route every day 04/15/2016 Ortho-Novum (28) 0.5 mg/0.75 mg/1 mg-35 mcg tablet Take one tablet daily 09/07/2016 oxycodone-acetaminophen 5 mg-325 mg tablet take one tablet during the day and one tablet at bedtime as needed for severe pain 09/20/2016 09/12/2016 Percocet 10 mg-325 mg tablet take 1 - 2 tablet by oral route every 4 - 6 hours as needed for pain DO NOTEXCEED 8 TABS PER DAY. 09/07/2016 triamcinolone acetonide 0.1 % topical cream apply by topical route every day a thin layer to the affected area(s) 09/12/2016 Valium 5 mg tablet take 1 - 2 Tablet by oral route every 8 hours as needed for spasm Counseling/Educational Factors: Counseling / educational factors reviewed. Counseling / educational factors reviewed. This is a visit of 60 minutes. 50 minutes were spent counseling. This document may have been created using voice recognition software or other electronic means and may contain inadvertent sorting machine operator errors. Provider: Anthony ISAAC 09/09/2016 10:40 AM Document generated by: Anthony Werner 09/09/2016 10:40 AM CC Providers: Emily Serrato [address] [place] [address] [place] [id number] [place] [address] w senthil singh i n i c s Aditya o irene g Hospital Course: Hospital Course: The patient was admitted through same day surgery and subsequently underwent a C4-5 & C5-C6 anterior cervical discectomy and fusion, with allograft bone 2, percent anterior cervical plating from C4-6. The patient tolerated the procedure well. The patient was then was transferred to PACU and then to the O[facility] floor. The patient was admitted for postoperative pain control, PT/OT, supervised for YASEMIN, chronic pain history co-morbidities with inpatient nurse monitoring, continuous pulse oximetry, and discharge planning. The Patient's overnight course was as expected with the patient's chronic pain history. Currently the patient has complaints of posterior referred myofascial inflammatory pain/spasm, dysphagia, & surgical site pain adequately controlled with her current postoperative analgesics & muscle relaxants. There is significant improvement of the patient's residual cervical myelopathy symptoms. The patient denies headache, severe sore throat or dysphagia, chest pain, shortness of breath, abdominal pain, nausea, vomiting, constipation, diarrhea, or any new onset &/or location of pain, weakness or paresthesias aside from the surgical site. PHYSICAL EXAM This is a well developed, well nourished, female who is alert, cooperative, and appears to be in no acute distress with a pleasant affect & euthymic mood. Exam of the head is normocephalic. PERRL, EOMI, without facial droop, hearing grossly intact, nostrils patent, oral cavity and pharynx normal. Voice is within normal limits Exam or the heart reveals regular rate and rhythm without audible murmurs The lungs are clear to auscultation bilaterally. The abdomen is non- tender and non-distended. Exam of the anterior cervical surgical wound reveals that it is clean, dry, and intact; without signs of infection, inflammation, and/or hematoma. There will be a rate of output from the surgical drain less than 30 mL in the last 8 hour period prior to discharge. Gross exam of the extremities reveals strength & sensation are grossly intact within the patient's normal baseline limits improve diminished sensation in the bilateral upper extremities. The patient was eventually able to get out of bed and ambulate within acceptable limits. Therapy services made recommendations for disposition. Flatus was appreciated and the patient was able to void without significant difficulty. The pain was gradually under control. The patient was afebrile on discharge. The patient's incision(s) was clean, dry and intact. The dressing was changed to the Surgeon's specifications. The rate of output from the wound drain will be less then 30cc's in an 8 hour period at discharge and therefore the drain will then be removed. The patient progressed well with rehabilitation and was subsequently discharged to home in stable condition. The patient verbally affirmed understanding when given clear instruction regarding the postoperative care and follow-up including but not limited to seeking immediate medical attention for chest pain, shortness of breath, oversedation, a temperature greater than 101.5 F, severe uncontrolled pain or weakness, loss of bowel or bladder function, choking, lots or drainage, pus discharge or constipation. The patient was further instructed to use her CPAP at all times when indicated as instructed. All questions were answered. The patient underwent an upright lateral C-spine x-ray today 09/15/2016 status post C4-5 & C5-6 anterior cervical discectomy and fusion, with allograft bone 2 , & anterior cervical plating from C4-C6 showing stable fusion construct & good instrumentation alignment. Disposition: Home in stable condition. Follow-up Plan: 1. Follow-up with physician assistant community director in outpatient neurosurgical clinic in 1 week for wound check. 2. Establish postoperative pain management with PCP in 2 weeks. Diazepam (Valium) 5 Mg Tablet 5-10 MG PO TID PRN PRN prn (Reported) Gabapentin (Gabapentin) 600 Mg Tablet 300 MG PO Q4 HRS (Reported) Levothyroxine (Levothyroxine) 75 Mcg Tablet 75 MCG PO DAILY (Reported) Norethindrone-Ethinyl Estrad (Ortho-Novum) 1 Each Tablet 1 EACH PO DAILY ( Reported) Triamcinolone Acet (Triamcinolone Acetonide Cream) 1 Applic/0.25 Gm Cr 1 APPLIC TP DAILY (Reported) 0.1% oxyCODONE-Acetaminophen 5-325 mg (oxyCODONE-Acetaminophen 5-325 mg) 1 Each Tablet 1-2 TAB PO Q4H PRN PRN For Pain (Reported) Discharge Medications: Prescribed during the patient's preoperative appointment. Attending Statement: All documentation reviewed & orders authorized by Dr. Kiran Medina M.D. copies to: Emily Serrato PA-C, Scott PA-C September 15, 2016 09:45
--- NOTE | 2016-09-15 10:15 | NUR ---
Social Work- Screening/ Readiness for Discharge Data: EMR reviewed. Pt is a 46 year old female admitted 09/14/16 for cervical myelopathy per H&P. Pt's insurance is [employer]. Pt's PCP is Emily Serrato PA-C. SW met with pt at bedside regarding discharge plan, SW role explained. Pt alert and oriented x3. Pt resides in [place] with her parents and her daughters ages 22 and 13. Pt is independent at baseline. Pt will have assistance at home from family. Pt has no DPOA on file, SW provided paperwork to pt at bedside. Pt to discharge home with her sister or mother to transport via POV. No discharge needs identified at this time. SW wrote phone number and plan on whiteboard. SW will continue to follow if needs arise. Assessment: Pt who is independent at baseline. Plan: Pt to discharge home with her sister or mother to transport via POV. No discharge needs identified at this time. SW will continue to follow if needs arise. Norma Hernandez MSW
--- NOTE | 2016-09-15 10:50 | NUR ---
Social Work- Discharge Data: EMR reviewed. Pt is a 46 year old female admitted 09/14/16 for cervical myelopathy per H&P. Pt to discharge today, discharge orders are active. Pt is independent at baseline. Pt to discharge home with her sister or mother to transport via POV. No discharge needs identified. Assessment: Pt who is independent at baseline. Plan: Pt to discharge home with her sister or mother to transport via POV. No discharge needs identified. Norma Hernandez MSW
--- NOTE | 2016-09-15 11:04 | NUR ---
Evaluation completed. Please go to "Notes" then click on "Assessments and Notes" (bottom left corner of screen). Then select appropriate discipline tab on top of screen.
--- NOTE | 2016-09-15 11:14 | DRSVH ---
PROCEDURE: X-RAY CERVICAL SPINE, 1 VIEW INDICATIONS: S/P C4-6 ACDF, Allograft x 2, & Plating TECHNIQUE: Single lateral view of the cervical spine acquired. COMPARISON: [facility], MR, MR CERVICAL SPINE WO CON, 07/05/2016, 19:04. [facility], CR, XR CERVICAL SPINE 1VW, 09/14/2016, 14:53. FINDINGS: Bones: Recent ACDF from the C4 through the C6 level with hardware and bone grafts in expected positio n. Soft tissues: No prevertebral soft tissue swelling. IMPRESSION: Multilevel ACDF C4-C6 with hardware in expected position. Dictated by: Andrea Zuluaga RR Interpreted: Anthony Lo MD on 09/15/2016 at 11:13 Transcribed by: [email or web address] on 09/15/2016 at 11:14 Approved by: Anthony Lo M.D. on 09/15/2016 at 16:21
[2016-09-15 13:07] VITALS: BP 102/56; PULSE 79; RESP 18; O2SAT 94
[2016-09-15] MEDS: HYDROmorphone 1 mg/mL Inj IVPUSH PRN (15:29)
--- NOTE | 2016-09-15 15:30 | NUR ---
Evaluation completed. Please go to "Notes" then click on "Assessments and Notes" (bottom left corner of screen). Then select appropriate discipline tab on top of screen.
--- NOTE | 2016-09-15 16:33 | NUR ---
Discharge To home via private vehicle with mother. Steady transfer to wheelchair. Pt and mother express understanding of all discharge instructions and care notes, including medications and followup. Rx previously given. Pt agrees to take medications as prescribed and instructed. IV discontinued intact. All belongings sent with pt.
== END 2016-09-15 16:30 | disposition home or self-care (01) | DRG 473 ==
LOC: SAS 11:46 → OSC 18:25
PROVIDERS: ADMIT Neurological Surgery; ATTEND Neurological Surgery
PROC: 0RG20A0 Fusion of 2 or more Cervical Vertebral Joints with Interbody Fusion Device, Anterior Approach, Anterior Column, Open Approach (ICD-10-PCS; 2016-09-14)
PROC: 0RT30ZZ Resection of Cervical Vertebral Disc, Open Approach (ICD-10-PCS; principal; 2016-09-14 14:00)
DX: M47.12 Other spondylosis with myelopathy, cervical region (principal); F17.200 Nicotine dependence, unspecified, uncomplicated; G47.33 Obstructive sleep apnea (adult) (pediatric)